=== PATIENT | female | born 2000 | race Caucasian/White ===

== ENCOUNTER 2023-11-17 20:05 | Emergency (ER) | payer OTHER ==
[~2023-11-17] VITALS: Ht 157.5 cm; Wt 79.4 kg
[2023-11-17 20:33] VITALS: BP 127/90; PULSE 76; RESP 18; TEMP 98.3; O2SAT 100
[2023-11-17] MEDS ORDERED: IBUP-2213 PO (21:49)
[2023-11-17] MEDS ORDERED: ONDA8TAB87 PO (21:49)
[2023-11-17] MEDS ORDERED: OMEP40EC23 PO (21:49)
[2023-11-17] MEDS: KETOROLAC 60 MG/2 ML VIAL IM ONE (21:51)
[2023-11-17 22:38] VITALS: BP 127/90; PULSE 76; RESP 18; TEMP 98.3; O2SAT 100
== END 2023-11-17 22:41 | disposition home or self-care (01) ==
LOC: MED 20:05
DX: R10.13 Epigastric pain (principal); R11.0 Nausea
CPT/HCPCS: 81002; 81025; 96372; 99283; J1885